=== PATIENT | female | born 1990 | race Caucasian/White ===

== ENCOUNTER 2022-01-06 11:17 | Emergency (ER) | payer OTHER ==
[~2022-01-06] VITALS: Ht 172.7 cm; Wt 78.0 kg
[2022-01-06] MEDS ORDERED: ANTICONCEPTIVO (12:17)
== END 2022-01-06 15:38 | disposition home or self-care (01) ==
LOC: ER 11:17
DX: S90.02XA Contusion of left ankle, initial encounter (principal); W18.30XA Fall on same level, unspecified, initial encounter; Y93.9 Activity, unspecified; Y92.59 Other trade areas as the place of occurrence of the external cause